=== PATIENT | male | born 1985 | race Two or more races ===

== ENCOUNTER 2023-08-31 08:45 | Emergency (ER) | payer MEDICAID ==
[~2023-08-31] VITALS: Ht 167.6 cm; Wt 85.0 kg
[2023-08-31 08:51] VITALS: BP 116/77; PULSE 76; RESP 16; TEMP 98.6
[2023-08-31] MEDS: ACETAMINOPHEN 500 MG TABLET PO ONE (09:26)
[2023-08-31] MEDS: IBUPROFEN 600 MG TABLET PO ONE (09:27)
[2023-08-31] MEDS ORDERED: ACET-3385 PO (09:29)
[2023-08-31] MEDS ORDERED: IBUP-1492 PO (09:29)
== END 2023-08-31 10:19 | disposition home or self-care (01) ==
LOC: EMS 08:45
DX: M25.59 Pain in other specified joint (principal)
CPT/HCPCS: 99282; Z7502; Z7610